=== PATIENT | female | born 1945 | race Caucasian/White ===

== ENCOUNTER 2017-07-24 15:27 | Inpatient (IN) | payer MEDICARE, OTHER ==
[~2017-07-24] VITALS: Ht 162.6 cm; Wt 76.3 kg
[2017-08-18] MEDS ORDERED: LIPITOR 40MG TA40 MG PO (10:19)
[2017-08-18] MEDS ORDERED: LOTENSIN 1010 MG/TAB PO (10:19)
[2017-08-18] MEDS ORDERED: WELLBUTRIN SR100 M1 PO (10:21)
[2017-08-18] MEDS ORDERED: ZYRTEC 10MG10 MG PO (10:21)
[2017-08-18] MEDS ORDERED: GLUCOPHAGE500 MG/TAB PO (10:22)
[2017-08-18] MEDS ORDERED: CORTEF 20MG TAB20 MG PO (10:22)
[2017-08-18] MEDS ORDERED: NAPROSYN500 MG PO (10:23)
[2017-08-18] MEDS ORDERED: MOBIC 7.5MG7.5 MG PO (10:23)
[2017-08-18] MEDS ORDERED: PRILOSEC 20MG20 MG PO (10:24)
[2017-08-18] MEDS ORDERED: NORCO 325 MG-51 TAB PO (10:24)
[2017-08-19] VITALS (14 sets, daily range): BP systolic 132–191; BP diastolic 60–86; PULSE 66–94; TEMP 97.4–98.7
[2017-08-20] VITALS (7 sets, daily range): BP systolic 131–172; BP diastolic 51–72; PULSE 34–99; TEMP 98.1–99
[2017-08-20 06:42] LABS: HEMATOCRIT 27.9 % (37.0-47.0)
[2017-08-21 00:21] VITALS: BP 145/59; PULSE 82; TEMP 98.5
[2017-08-21 04:11] VITALS: BP 156/56; PULSE 86; TEMP 98.2
[2017-08-21 06:49] LABS: HEMATOCRIT 27.6 % (37.0-47.0); HEMOGLOBIN 9.1 g/dl (12.5-16.0)
[2017-08-21] MEDS ORDERED: ASPI325T6 PO (08:25)
[2017-08-21] MEDS ORDERED: CELEBREX 200MG200 MG PO (08:25)
[2017-08-21] MEDS ORDERED: ROXICODONE 55 MG/TAB PO (08:26)
[2017-08-21] MEDS ORDERED: NORCO 325 MG-7.1 TAB PO (08:26)
[2017-08-21] MEDS ORDERED: TYLENOL 500MG500 MG PO (08:27)
[2017-08-21] MEDS ORDERED: COLACE 100100 MG/CAP PO (08:28)
== END 2017-08-21 13:45 | disposition home or self-care (01) | DRG 470 ==
LOC: JCC 08-19 04:54
PROVIDERS: Orthopaedic Surgery
PROC: 0SR90JA Replacement of Right Hip Joint with Synthetic Substitute, Uncemented, Open Approach (ICD-10-PCS; principal; 2017-08-19 07:30)
DX: M16.11 Unilateral primary osteoarthritis, right hip (principal); I10 Essential (primary) hypertension; F17.210 Nicotine dependence, cigarettes, uncomplicated
CPT/HCPCS: A4314; A9284; C1713; C1776; J0690; J1100; J2250; J2405; J2704; J2795; J7030; J7050

== ENCOUNTER → 2017-10-06 | Outpatient (CLI) | payer MEDICARE, OTHER ==
[~2017-10-06] MED LIST: ASPI325T6 PO; CELEBREX 200MG200 MG PO; COLACE 100100 MG/CAP PO; CORTEF 20MG TAB20 MG PO; GLUCOPHAGE500 MG/TAB PO; LIPITOR 40MG TA40 MG PO; LOTENSIN 1010 MG/TAB PO; MOBIC 7.5MG7.5 MG PO; NAPROSYN500 MG PO; NORCO 325 MG-51 TAB PO; NORCO 325 MG-7.1 TAB PO; PRILOSEC 20MG20 MG PO; ROXICODONE 55 MG/TAB PO; TYLENOL 500MG500 MG PO; WELLBUTRIN SR100 M1 PO; ZYRTEC 10MG10 MG PO
== END ==
LOC: MC.RAD 09-09 13:00
DX: Z12.31 Encounter for screening mammogram for malignant neoplasm of breast (principal)